=== PATIENT | female | born 1980 | race Caucasian/White ===

== ENCOUNTER 2017-08-07 14:50 | Inpatient (IN) | payer BC ==
[2017-08-09] MEDS ORDERED: D5LR 1L W PITOCIN 10 UNITS/L 10 UNITS/1,000 ML BAG IV ONE (05:23)
[2017-08-09] MEDS ORDERED: LR 1000 ML IV 1,000 ML IV ONE (05:23)
[2017-08-09] MEDS ORDERED: PITOCIN ONE (05:24)
[2017-08-09] MEDS ORDERED: D5 1/2 NS 1L W PITOCIN 20 UNITS/L 20 UNITS/1,000 ML BAG IV ONE (05:24)
[2017-08-09] MEDS ORDERED: D5 1/2 NS 1000 ML 1,000 ML IV ONE (05:24)
[2017-08-09] MEDS ORDERED: NAROPIN EPIDURAL 0.2% + FENTANYL 90MCG 60 ML EPI ONE (05:25)
[2017-08-09] MEDS ORDERED: FENTANYL INJ 100 mcg ONE (05:25)
[2017-08-09] MEDS ORDERED: NUBAIN INJ 10 ONE (05:41)
[2017-08-09] MEDS ORDERED: MORPHINE SULFATE INJ 2 MG INJ IVP PRN (05:55)
[2017-08-09] MEDS ORDERED: D5LR 1L W PITOCIN 10 UNITS/L 10 UNITS/1,000 ML BAG IV PRN (05:55)
[2017-08-09] MEDS ORDERED: REGLAN INJ 10 MG VIAL IVP PRN ×2 (05:55→09:54)
[2017-08-09] MEDS ORDERED: NUBAIN INJ 200 MG VIAL MULTIDOSE IVP PRN (05:55)
[2017-08-09] MEDS ORDERED: D5 1/2 NS 1000 ML 1,000 ML IV SCH (05:55)
[2017-08-09] MEDS ORDERED: PHENERGAN INJ 25 MG IV PRN ×3 (05:55→09:54)
[2017-08-09] MEDS ORDERED: PITOCIN IVP ONE (05:55)
--- NOTE | 2017-08-09 07:35 | DR.OB ---
OB Quick Note - Assessment/Plan Assessment/Plan: L&D 08/09/17 at 7:15am S-No complaint. s/p epidural. O-Afebrile,VSS XEV=478 with good LTV, +accel, no decel. CTX=q 1 1/2 min., strong by palpation CVX=4cm/75%/0/VTX AROM with clear fluid. IUPC and FSE placed. A-IUP at 39 1/7 weeks for induction AMA P-Begin pitocin induction Anticipate
[2017-08-09] MEDS ORDERED: ZOFRAN INJ 4 MG VIAL ONE (07:41)
[2017-08-09] MEDS ORDERED: ZOFRAN INJ 4 MG VIAL IVP ONE (07:50)
[2017-08-09] MEDS ORDERED: MOTRIN TAB 800 MG PO PRN (08:38)
--- NOTE | 2017-08-09 08:44 | DR.OB ---
OB Quick Note - Assessment/Plan Assessment/Plan: Delivery Note STIFF NECK LOADER 08/09/17 at 8:30am Patient complete and pushing. Head delivered over intact perineum. No nuchal cord. Nose and mouth bulb suctioned. Body delivered over intact perineum. Cord clamped x 2 and cut. handed to attendant. Cord sent for gases. Placenta delivered spontaneously / intact / 3 vessel cord. No CVX / vaginal / perineal tears. Viable female infant, VTX/OA, wt=6'13" and 9/9, stable to NBN. Mother stable to RR. DDT=[id number].
[2017-08-09] MEDS ORDERED: D5 1/2 NS 1000 ML 1,000 ML with PITOCIN 20 UNITS IV SCH ×2 (09:00)
[2017-08-09] MEDS ORDERED: DERMOPLAST SPRAY TOP PRN (09:54)
[2017-08-09] MEDS ORDERED: MILK OF MAGNESIA PO PRN (09:54)
[2017-08-09] MEDS ORDERED: AMBIEN PO PRN (09:54)
[2017-08-09] MEDS ORDERED: ADACEL TDaP IM ONE ×2 (09:54→12:57)
[2017-08-09] MEDS: PRENATAL PLUS PO SCH (13:15)
[2017-08-09] MEDS: ZANTAC PO SCH ×2 (13:15→21:00)
[2017-08-09] MEDS: D5 1/2 NS 1000 ML 1,000 ML with PITOCIN 20 UNITS IV SCH ×4 (15:26→17:13)
[2017-08-09] MEDS: MOTRIN TAB 800 MG PO PRN (16:49)
[2017-08-09] MEDS ORDERED: PERCOCET TAB 5/325 MG PO PRN (19:17)
[2017-08-10] MEDS: MOTRIN TAB 800 MG PO PRN (00:30)
[2017-08-10] MEDS: D5 1/2 NS 1000 ML 1,000 ML with PITOCIN 20 UNITS IV SCH ×4 (01:25→09:24)
[2017-08-10 05:16] LABS: HEMATOCRIT 33.4 % (36.0-47.0); HEMOGLOBIN 11.4 g/dL (12.0-16.0)
[2017-08-10] MEDS ORDERED: DEPO-PROVERA CONTRACEPTIVE INJ IM ONE (07:35)
[2017-08-10] MEDS: PRENATAL PLUS PO SCH (09:24)
[2017-08-10] MEDS: ZANTAC PO SCH (09:24)
[2017-08-10 09:38] VITALS: BP 103/57
== END 2017-08-10 11:05 | disposition home or self-care (01) | DRG 774 ==
LOC: LD 08-09 05:32 → MED/SURG 08-09 10:00
PROVIDERS: ADMIT Specialist; ATTEND Specialist
PROC: 10E0XZZ Delivery of Products of Conception, External Approach (ICD-10-PCS; principal; 2017-08-09)
PROC: 10907ZC Drainage of Amniotic Fluid, Therapeutic from Products of Conception, Via Natural or Artificial Opening (ICD-10-PCS; 2017-08-09)
PROC: 3E033VJ Introduction of Other Hormone into Peripheral Vein, Percutaneous Approach (ICD-10-PCS; 2017-08-09)
PROC: 00HU33Z Insertion of Infusion Device into Spinal Canal, Percutaneous Approach (ICD-10-PCS; 2017-08-09)
PROC: 3E0234Z Introduction of Serum, Toxoid and Vaccine into Muscle, Percutaneous Approach (ICD-10-PCS; 2017-08-09)
DX: O99.89 Other specified diseases and conditions complicating pregnancy, childbirth and the puerperium (principal); O98.313 Other infections with a predominantly sexual mode of transmission complicating pregnancy, third trimester; Z37.0 Single live birth; O09.513 Supervision of elderly primigravida, third trimester; Z3A.39 39 weeks gestation of pregnancy; Z23 Encounter for immunization
CPT/HCPCS: 36415; 85014; 85018; S0197; J1050; J2300; J2405; J2590; J3010; J7042; J7120

== ENCOUNTER → 2017-08-07 | Outpatient (CLI) | payer BC ==
[2015-09-04 00:27] VITALS: BP 118/75
[2017-08-07 09:23] LABS: BILIRUBIN,URINE NEGATIVE (NEGATIVE); BLOOD/HEMOGLOBIN,URINE NEGATIVE (NEGATIVE); GLUCOSE, URINE NEGATIVE (NEGATIVE); KETONES,URINE NEGATIVE (NEGATIVE); LEUKOCYTE ESTERASE ,URINE NEGATIVE (NEGATIVE); NITRITES,URINE NEGATIVE (NEGATIVE); PH,URINE 6.5 (5.0 - 8.0); PROTEIN,URINE NEGATIVE (NEGATIVE); UROBILINOGEN,URINE NORMAL (NORMAL)
[2017-08-07 09:28] LABS: APPEARANCE,URINE CLEAR (CLEAR); COLOR,URINE YELLOW (YELLOW)
[2017-08-07 09:34] LABS: BLOOD UREA NITROGEN 5 mg/dL (7-18); CALCIUM 8.1 mg/dL (8.5-10.1); CARBON DIOXIDE 22.7 mmol/L (21-32); CHLORIDE 105 mmol/L (98-107); CREATININE 0.51 mg/dL (0.55-1.02); SODIUM 138 mmol/L (136-145); eGFR BLACK RACES > 60 (>60); eGFR NON BLACK RACES > 60 (>60)
[2017-08-07 09:36] LABS: BASOPHILS % (AUTO) 0.3 % (0.2-1.0); EOSINOPHILS # (AUTO) 0.1 x10^3/uL (0.0-0.2); EOSINOPHILS % (AUTO) 1.2 % (0.9-2.9); HEMATOCRIT 33.3 % (36.0-47.0); HEMOGLOBIN 11.4 g/dL (12.0-16.0); LYMPHOCYTES # (AUTO) 1.9 X10^3/uL (1.3-2.9); LYMPHOCYTES % (AUTO) 23.6 % (21.0-51.0); MEAN CORPUSCULAR HEMOGLOBIN 31.3 pg (27.0-34.0); MEAN CORPUSCULAR HGB CONC 34.3 g/dL (33.0-35.0); MEAN CORPUSCULAR VOLUME 91.2 fL (80.0-100.0); MONOCYTES # (AUTO) 0.8 x10^3/uL (0.3-0.8); MONOCYTES % (AUTO) 10.3 % (0.0-13.0); NEUTROPHILS # (AUTO) 5.2 x10^3/uL (2.2-4.8); NEUTROPHILS % (AUTO) 64.6 % (42.0-75.0); PLATELET COUNT 215 X10^3/uL (150.0-450.0); RED BLOOD COUNT 3.65 X10^6/uL (3.5-5.4); RED CELL DISTRIBUTION WIDTH 12.6 % (11.6-16.5)
== END ==
LOC: LAB 08:27
PROVIDERS: ATTEND Specialist
DX: Z01.818 Encounter for other preprocedural examination (principal); Z34.83 Encounter for supervision of other normal pregnancy, third trimester
CPT/HCPCS: 36415; 80048; 80307; 81003; 85025; 86592; 86850; 86900; 86901; G0434

== ENCOUNTER 2017-08-09 04:34 | Emergency (ER) | payer BC ==
[2017-08-09 04:47] VITALS: BP 104/60; BMI 27.4
[2017-08-09] MEDS ORDERED: D5 1/2 NS 1000 ML 1,000 ML IV ONE (04:57)
[2017-08-09] MEDS ORDERED: D5 1/2 NS 1000 ML 1,000 ML IV SCH (05:00)
[2017-08-09 05:06] LABS: BILIRUBIN,URINE NEGATIVE (NEGATIVE); BLOOD/HEMOGLOBIN,URINE 2+ (NEGATIVE); GLUCOSE, URINE NEGATIVE (NEGATIVE); KETONES,URINE NEGATIVE (NEGATIVE); LEUKOCYTE ESTERASE ,URINE 1+ (NEGATIVE); NITRITES,URINE NEGATIVE (NEGATIVE); PROTEIN,URINE NEGATIVE (NEGATIVE); UROBILINOGEN,URINE NORMAL (NORMAL)
[2017-08-09 05:12] LABS: APPEARANCE,URINE CLEAR (CLEAR); BACTERIA,URINE TRACE /HPF (NEGATIVE); COLOR,URINE YELLOW (YELLOW); RBC,URINE 0-2 /HPF (NONE SEEN); SQUAMOUS EPITHELIAL CELL,UR MODERATE /HPF (NEGATIVE)
== END 2017-08-09 05:32 | disposition other institution (70) ==
LOC: ER 04:34
DX: O60.00 Preterm labor without delivery, unspecified trimester (principal)
CPT/HCPCS: 81001; 96365; 99284; A4222; J7042

== ENCOUNTER 2019-03-25 06:30 | Inpatient (IN) ==
[~2019-03-25 06:30] MED LIST: D5 1/2 NS 1000 ML 1,000 ML IV ONE; D5LR 1L W PITOCIN 10 UNITS/L 10 UNITS/1,000 ML BAG IV ONE
--- NOTE | 2019-03-25 07:25 | DR.OB ---
OB Quick Note - Assessment/Plan Assessment/Plan: L&D 03/25/19 at 7:12am S-No complaint. O-Afebrile,VSS MIW=716 with good LTV, +accel, no decel. CTX=none CVX=3cm/50%/0/VTX AROM with clear fluid. IUPC and FSE placed. A-IUP at 39 2/7 weeks for induction AMA Multiparity Desiring Permanent Sterilization GERD P-Begin pitocin induction Anticipate with PP BTL as desired
[2019-03-25] MEDS ORDERED: MORPHINE SULFATE INJ 2 MG INJ IVP PRN (07:32)
[2019-03-25] MEDS ORDERED: D5LR 1L W PITOCIN 10 UNITS/L 10 UNITS/1,000 ML BAG IV PRN (07:32)
[2019-03-25] MEDS ORDERED: REGLAN INJ 10 MG VIAL IVP PRN ×2 (07:32→13:17)
[2019-03-25] MEDS ORDERED: PITOCIN IVP ONE (07:32)
[2019-03-25] MEDS ORDERED: NUBAIN INJ 200 MG VIAL MULTIDOSE IVP PRN (07:32)
[2019-03-25] MEDS ORDERED: PHENERGAN INJ 25 MG IM PRN ×3 (07:32→13:17)
[2019-03-25] MEDS ORDERED: D5 1/2 NS 1000 ML 1,000 ML IV SCH (08:00)
[2019-03-25] MEDS ORDERED: LR 1000 ML IV 1,000 ML IV ONE ×2 (08:11→12:32)
[2019-03-25] MEDS ORDERED: ZOFRAN INJ 4 MG VIAL ONE (08:15)
[2019-03-25] MEDS ORDERED: XYLOCAINE 1 % (PLAIN) ONE (08:15)
[2019-03-25] MEDS ORDERED: VERSED ONE (08:15)
[2019-03-25] MEDS ORDERED: DIPRIVAN VIAL ONE (08:15)
[2019-03-25] MEDS ORDERED: DECADRON INJ ONE ×2 (08:15→12:14)
[2019-03-25] MEDS ORDERED: ULTANE GAS IN ONE (08:15)
[2019-03-25] MEDS ORDERED: FENTANYL INJ 100 mcg ONE ×2 (08:19→12:14)
[2019-03-25] MEDS ORDERED: NAROPIN EPIDURAL 0.2% + FENTANYL 90MCG 60 ML EPI ONE (08:19)
[2019-03-25] MEDS ORDERED: PITOCIN ONE (10:09)
[2019-03-25] MEDS ORDERED: D5 1/2 NS 1L W PITOCIN 20 UNITS/L 20 UNITS/1,000 ML BAG IV ONE (10:10)
[2019-03-25] MEDS: D5 1/2 NS 1000 ML 1,000 ML with PITOCIN 20 UNITS IV SCH ×4 (10:56→20:26)
--- NOTE | 2019-03-25 11:06 | DR.OB ---
OB Quick Note - Assessment/Plan Assessment/Plan: Delivery Note FOAM TANK LAMINATOR 03/25/19 at 11:00am Patient complete and pushing. Head delivered over intact perineum. No nuchal cord. Nose and mouth bulb suctioned. Body delivered over intact perineum. Cord clamped x 2 and cut. Infant handed to attendant. No cord sent for gases. Placenta delivered spontaneously / intact / 3 vessel cord. No CVX / vaginal / perineal tears. Viable female , VTX/OA, wt=6'6" and 8/9, stable to NBN. Mother stable to RR. XRD=614vh.
[2019-03-25] MEDS ORDERED: ANCEF 1 GRAM IV PREMIX* 1 G/50 ML BAG IV ONE (11:56)
[2019-03-25] MEDS ORDERED: MORPHINE SULFATE INJ 10 MG ONE (12:14)
[2019-03-25] MEDS ORDERED: ZOFRAN INJ 4 MG VIAL IVP PRN (13:17)
[2019-03-25] MEDS ORDERED: DILAUDID INJ IVP PRN (13:17)
[2019-03-25] MEDS ORDERED: BENADRYL INJ 50 MG VIAL IVP PRN (13:17)
[2019-03-25] MEDS ORDERED: MOTRIN TAB 800 MG PO PRN (13:48)
[2019-03-25] MEDS ORDERED: ADACEL or BOOSTRIX TDaP VACCINE IM ONE (13:48)
[2019-03-25] MEDS ORDERED: MYLICON TAB 80 MG CHEW PO PRN (13:48)
[2019-03-25] MEDS ORDERED: DERMOPLAST SPRAY TOP PRN (13:48)
[2019-03-25] MEDS ORDERED: AMBIEN PO PRN ×2 (13:48)
[2019-03-25] MEDS ORDERED: MILK OF MAGNESIA PO PRN ×2 (13:48)
[2019-03-25] MEDS: MOTRIN TAB 800 MG PO PRN ×2 (15:10→22:10)
[2019-03-25] MEDS: PERCOCET TAB 5/325 MG PO PRN (20:30)
[2019-03-26] MEDS: PERCOCET TAB 5/325 MG PO PRN ×2 (00:10→03:53)
[2019-03-26] MEDS: D5 1/2 NS 1000 ML 1,000 ML with PITOCIN 20 UNITS IV SCH ×4 (03:53→12:33)
[2019-03-26] MEDS: MOTRIN TAB 800 MG PO PRN (05:15)
[2019-03-26 05:39] LABS: HEMATOCRIT 28.7 % (36.0-47.0); HEMOGLOBIN 9.6 g/dL (12.0-16.0)
[2019-03-26] MEDS ORDERED: AFLURIA II4 or FLUARIX II4 IM ONE (07:55)
[2019-03-26] MEDS ORDERED: BACTROBAN TOPICAL OINT ONE (08:46)
[2019-03-26] MEDS ORDERED: PROTONIX TAB 40 MG PO SCH (09:00)
[2019-03-26] MEDS ORDERED: PRENATAL PLUS PO SCH (09:00)
[2019-03-26 12:33] VITALS: BP 115/68
[2019-03-26] MEDS ORDERED: BACTROBAN TOPICAL OINT TOP SCH (14:00)
== END 2019-03-26 13:10 | disposition home or self-care (01) | DRG 798 ==
LOC: LD 06:35 → MED/SURG 14:33
PROVIDERS: ADMIT Specialist; ATTEND Specialist
DX: O99.613 Diseases of the digestive system complicating pregnancy, third trimester; Z37.0 Single live birth; Z3A.39 39 weeks gestation of pregnancy; Z23 Encounter for immunization; Z30.2 Encounter for sterilization
CPT/HCPCS: 36415; 59409; 85014; 85018; 90674; 90686; A4216; A4222; S0197; J0690; J1100; J2250; J2405; J2590; J2704; J3010; J3490; J7120; S5010